=== PATIENT | male | born 1955 | race Caucasian/White ===

== ENCOUNTER 2021-08-25 13:01 | Emergency (ER) | payer OTHER ==
[2021-08-25 14:53] LABS: #Monocytes 0.5 10x3/uL (0.0-1.1); %Basophils 0.6 % (0.0-2.0); %Eosinophils 0.3 % (0.0-6.0); %Lymphocytes 30.4 % (18.0-47.0); %Monocytes 13.1 % (0.0-10.0); %Neutrophils 55.3 % (40.0-75.0); Hemoglobin 16.7 g/dL (13.5-17.5); Mean Corpuscular HGB CONC 32.2 g/dL (32.0-36.0); Mean Corpuscular Volume 86.9 fl (81.2-95.1); Mean Platelet Volume 11.7 fl (7.4-10.4); Platelet Count 157 10x3/uL (150-450); RBC Distribution Width 12.4 % (11.5-14.5); Red Blood Cell (RBC) Count 5.96 10x6/uL (4.32-5.72); White Blood Cell (WBC) Count 3.6 10x3/uL (3.5-10.5)
[2021-08-25 15:15] LABS: ALT (SGPT) 26 U/L (8-55); AST (SGOT) 38 U/L (5-34); Albumin 3.9 g/dL (3.4-4.8); Alkaline Phosphatase 61 U/L (40-110); Anion Gap 16 mmol/L (10-20); BUN (Urea Nitrogen) 23 mg/dL (8.4-25.7); Bilirubin, Total 0.8 mg/dL (0.2-1.2); Calc. Creatinine Clearance 0 mL/min (70-130); Calcium 9.9 mg/dL (7.8-10.44); Carbon Dioxide 24 mmol/L (23-31); Chloride 101 mmol/L (98-107); Globulin 3.7 g/dL (2.4-3.5); Glucose 143 mg/dL (80-115); Potassium 4.5 mmol/L (3.5-5.1); Protein, Total 7.6 g/dL (5.8-8.1); Sodium 136 mmol/L (136-145)
[2021-08-25] MEDS ORDERED: Morphine 4 MG/ML VIAL ONE (15:28)
== END 2021-08-25 17:15 | disposition home or self-care (01) ==
LOC: CSHERS 13:01
DX: U07.1 COVID-19 (principal); E11.9 Type 2 diabetes mellitus without complications; I95.9 Hypotension, unspecified; Z87.442 Personal history of urinary calculi
CPT/HCPCS: 71045; 80053; 83605; 84484; 85025; 93005; 96374; J2270

== ENCOUNTER 2023-04-06 09:11 | Emergency (ER) | payer OTHER ==
[2023-04-06] MEDS ORDERED: Sterile Water 10 ML ONE (10:05)
[2023-04-06] MEDS ORDERED: CEFAZOLIN 2 GM VIAL ONE (10:05)
== END 2023-04-06 11:11 | disposition home or self-care (01) ==
LOC: CSHERS 09:11
DX: L60.0 Ingrowing nail (principal); L03.031 Cellulitis of right toe; E11.9 Type 2 diabetes mellitus without complications
CPT/HCPCS: 96372; 99283

== ENCOUNTER 2023-06-10 05:56 | Emergency (ER) | payer OTHER, SELFPAY ==
[2023-06-10] MEDS ORDERED: Dexamethasone 10 MG/ML VIAL ONE (06:57)
[2023-06-10] MEDS ORDERED: Dexamethasone 4 MG TAB PO SCH (07:15)
== END 2023-06-10 06:45 | disposition home or self-care (01) ==
LOC: CSHERS 05:56
DX: J02.9 Acute pharyngitis, unspecified (principal); E11.9 Type 2 diabetes mellitus without complications; Z79.4 Long term (current) use of insulin
CPT/HCPCS: 87081; 87430; 99283; J1100; J8540

== ENCOUNTER 2023-08-29 07:55 | Outpatient (CLI) | payer OTHER | END 2023-08-29 07:56 | disposition home or self-care (01) | LOC: CSHMRI 07:55 | PROVIDERS: ATTEND Neurological Surgery | DX: M47.26 Other spondylosis with radiculopathy, lumbar region (principal); M48.062 Spinal stenosis, lumbar region with neurogenic claudication; Z98.890 Other specified postprocedural states | CPT/HCPCS: 72148 ==